=== PATIENT | male | born 1980 | race Caucasian/White ===

== ENCOUNTER 2021-11-30 10:56 | Emergency (ER) | payer MEDICAID ==
[~2021-11-30] VITALS: Ht 170.2 cm; Wt 60.3 kg
[2021-11-30 11:31] VITALS: BP 128/96
[2021-11-30] MEDS ORDERED: ALUMINUM HYD/MAG/SIMETHICONE 30 ML, DICYCLOMINE HCL LIQUID 20 MG, LIDOCAINE VISCOUS 2% ... PO ONE ×3 (11:55)
[2021-11-30] MEDS ORDERED: ONDANSETRON 4 MG ODT PO ONE (11:55)
[2021-11-30] MEDS ORDERED: ALUMINUM HYD/MAG/SIMETHICONE 30 ML UDC ONE (12:07)
[2021-11-30] MEDS ORDERED: DICYCLOMINE HCL LIQUID 10 MG/5 ML UDC ONE (12:07)
[2021-11-30] MEDS ORDERED: FAMO-92 PO (12:10)
[2021-11-30] MEDS ORDERED: ONDA-188 SL (12:10)
[2021-11-30 12:29] VITALS: BP 122/84
--- NOTE | 2021-11-30 12:29 | NUR ---
Patient discharged with v/s stable. Written and verbal after care instructions given FOR GASTRITIS and explained. Patient alert, oriented and verbalized understanding of instructions. Ambulatory with steady gait. All questions addressed prior to discharge. ID band removed. Patient advised to follow up with PMD. Rx of PEPCID AND ZOFRAN given. Patient educated on indication of medication including possible reaction and side effects. Opportunity to ask questions provided and answered.
== END 2021-11-30 12:29 | disposition home or self-care (01) ==
LOC: MED 10:56
DX: K29.70 Gastritis, unspecified, without bleeding (principal)
CPT/HCPCS: 99283; Q0162